=== PATIENT | female | born 1980 | race Native Hawaiian/Other Pacific Islander ===

== ENCOUNTER 2021-03-21 10:10 | Emergency (ER) | payer OTHER ==
[2021-04-03 19:50] LABS: PLATELET COUNT 262 K/uL (152-353)
[2021-04-03 19:52] LABS: POTASSIUM 3.3 mmol/L (3.6-5.2)
== END 2021-03-21 21:40 | disposition short-term general hospital (02) ==
LOC: ED 10:10
PROVIDERS: Hospitalist
DX: R10.84 Generalized abdominal pain (principal); N39.0 Urinary tract infection, site not specified; K21.9 Gastro-esophageal reflux disease without esophagitis; K76.0 Fatty (change of) liver, not elsewhere classified
CPT/HCPCS: 36415; 80053; 81000; 82150; 83690; 85027; 87088; 96360; 99284